=== PATIENT | female | born 2000 | race Caucasian/White ===

== ENCOUNTER 2025-04-21 19:06 | Emergency (ER) | payer OTHER, SELFPAY ==
[2025-04-21 19:13] VITALS: BP 121/74; PULSE 100; TEMP 37; O2SAT 100; BMI 22.3
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
[2025-04-21 20:00] LABS: Hematocrit* 38.7 % (33.0-51.0); Hemoglobin* 12.9 gm/dL (12.0-16.0); Immature Granulocytes Abs Auto 0.01 K/uL (0.00-0.30); Immature Granulocytes Pct Auto 0.1 %; Lymphocytes Absolute Auto 1.10 K/uL (0.90-2.90); Mean Corpuscular HGB Conc 33 gm/dL (32-36); Mean Corpuscular Hemoglobin 29 pg (26-34); Mean Corpuscular Volume 86 fL (80-100); RDW Coefficient of Variation % 13.1 % (11.5-15.5); Red Blood Count* 4.52 m/uL (4.00-5.20); White Blood Count* 10.05 K/uL (4.50-11.00)
[2025-04-21 20:01] LABS: Slide Review Reflex No
--- OUTSIDE RECORDS SUMMARY | 2025-04-21 20:15 | XMS_ITS | Clinical Summary ---
Author Organization [facility] Address [address] [place] [address] Care Team Providers Care Security And Privacy Consultant Name Role Phone Leigha Metzger MD Primary Care Provi mony Allergies No known active allergies Medications MedicationSigDispense QuantityRefillsLast FilledStart DateEnd DateStatus dextroamphetamine-amphetamine (AdderalL) 10 mg tablet Take 10 mg by mouth two times daily.Active vit 62/FA/om3/dha/epa ( GUMMY ORAL) Take 1 Each by mouth once daily.Active Active Problems ProblemNoted DateDiagnosed DateAttention deficit hyperactivity disorder, predominantly inattentive type02/08/2025Estimated Date of Delivery JriibresUbj82/13/2026ased on last menstrual period of 12/29/2024 (Approximate) Encounters DateTypeDepartmentCare KdojIhlfutcqjfq69/17/2025 8:45 AM CSTOB Encounter [facility] [address] [place] [address] Tova Mejias DO Care (10 wks 2 days)03/11/20253133Htybbr89/13/1004Fjjjcc01/07/2025 7:30 AM CSTAncillary Procedure [facility] [address] [place] [address] 02/28/20256233Jorzyn17/30/2025 6:30 PM CDTOffice Visit [facility] [address] [place] [phone] Sayra Cheung NP Cough; Throat Pain/problem; Fever02/20/2025 9:00 AM CDTOB Encounter [facility] [address] [place] [address] Education (RN OB intake)02/20/20251590Qsmvgk77/28/9604Iujett90/17/2025 9:35 AM CDT Office Visit [facility] [address] [place] [address] Brittanie Vega, Confirmation (LMP: 12/29/2024)02/08/2025Travelfrom Last 3 Months Immunizations ImmunizationAdministration DatesNext NyuTBgG4706/20/2007,01/13/2004,04/05/2003, 02/01/2003,2002HIB-HepB (Comvax)10/07/2003,02/01/2003,2002HPV 9 (Gardasil 9)07/12/2016Hepatitis A (Peds)11/28/2014Human Papilloma Virus Vaccine 07/12/2016,11/28/2014Inactivated Polio Mxkxjbv2306/20/2007,04/05/2003,02/01/2003, 2002Influenza A (H1N1), Ghsgdpbrebs24/05/2010,04/23/2009Influenza, IIV3 (Age >=3 years)03/04/2004,04/05/2003Influenza, BJP098/10/2014Influenza, IIV4 (=>6mos) MDV1Influenza,LAIV3 Live Intranasal (Flumist)05/14/2013 Influenza,LAIV4 Live Intranasal (Flumist)03/13/2014,02/16/2012MMR06/20/2007, 01/13/2004Meningococcal Vaccine (Menactra)11/28/2014Pneumococcal conj 7-Valent (Prevnar 7)01/13/2004,04/05/2003,02/01/2003,2002Tdap11/28/2014Varicella Hmjstir1106/20/2007,10/07/2003 Family History Medical HistoryRelationNameCommentsUnknownFatherNo Known ProblemsHalf-Brother Coronary artery diseaseMaternal GrandfatherHeart attackMaternal Grandfather 30's-40'sStrokeMaternal GrandmotherHypertensionMotherMultiple sclerosisPaternal GrandfatherMultiple sclerosisPaternal GrandmotherRelationNameStatusComments FatherAliveHalf-BrotherAliveMaternal GrandfatherAliveMaternal GrandmotherAlive MotherAlivePaternal GrandfatherAlivePaternal GrandmotherAlive Social History Tobacco UseTypesPacks/DayYears UsedDateSmoking Tobacco: NeverSmokeless Tobacco: Never Tobacco Cessation:Counseling Given: Not Answered Alcohol UseStandard Drinks/WeekCommentsNot Currently6 (1 standard drink = 0.6 oz pure alcohol)weekendsPHQ-2AnswerDate RecordedPHQ-2 TOTAL [id number] ConnectionsAnswerDate RecordedDo you often feel lonely or isolated from those around you?lcohol UseAnswerDate RecordedHow often do you have a drink containing alcohol?verage Number of DrinksNot on file 03/11/2025Frequency of Binge DrinkingNot on file03/11/2025Financial Resource StrainAnswerDate RecordedDifficulty of Paying Living Athvcqyu400/17/2025 Difficulty of Paying Living ExpensesNot on file02/08/2025Food InsecurityAnswer Date RecordedDo you worry your food will run out before you are able to buy more?Transportation NeedsAnswerDate RecordedDoes lack of transportation keep you from medical appointments?Does lack of transportation keep you from work, meetings or getting things that you need?1 02/08/2025Housing StabilityAnswerDate RecordedWhat is your housing situation today?UtilitiesAnswerDate RecordedDo you have trouble paying for utilities (for example, heat, electricity, water, phone)? Estimated Date of DsiursjyExtioghrEwm43/13/2026ased on last menstrual period of 12/29/2024 (Approximate)Sex and Gender InformationValueDate RecordedSex Assigned at BirthNot on fileLegal BpeDzcnhz31/06/2025 2:11 PM CDTGender IdentityFemale 02/08/2025 9:30 AM CDTSexual OrientationNot on file Obstetrics History GravidaParaTermPretermABIABSABEctopicMultipleLivingLive Eaqucj7HzqnOdogehpEK Total LaborLabor/2nd/0bvYigrwwHwmSpdcUofvPHRRbpY8V9TrsyKazzVzqench Summary Episode DatesNumber of FetusesEstimated Date of Fsohawya40/29/2025 - Present (04/21/2025)10/05/2025 (set by Hilary Dow, RN on 02/20/2025 based on Last Menstrual Period on 12/29/2024 (Approximate))Based OnEDDGA DiffLast Menstrual Period on 12/29/2024 (Approximate)10/05/2025WorkingUltrasound on 03/01/2025 10/05/2025SameGA:2w9nCrtbuwlvs KEVIN Entry10/05/2025SamePregravid WeightHeightTWG (As of 04/21/2025)Pregravid BMI1.557 m (5' 1.3) Notes Progress Notes - OB Encounte r - 03/11/2025 - GA:10w2d 03/11/2025 - 10w2d - Tova Mejias DO FIRST OB VISIT HPI: Francie Vargas is a 24 y.o. 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 She is here with self. Estimated due date is Estimated Date of Delivery: 10/05/25 based on LMP consistent with 8wk US. 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 . 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 SHANNON Singleton Nausea/Vomiting: no Breast tenderness: yes Fatigue: yes Bleeding: no Taking vitamins: yes started when found out Options of sequential screen, cell-free DNA testing, amniocentesis were discussed. Patient is interested in pursuing testing. She plans to call insurance. AMA: no Previous : no MENSTRUAL HISTORY LMP:Patient's last menstrual period was 12/29/24. Pretty sure. 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 Last Pap smear September 2024 negative ADHD: She has been prescribed Adderall 10 mg twice daily by a provider from the [place] system. Says recently taking every other day or skipping few days. Was not sure if should be taking, says told could take. Helps her day to day life when takes. Otherwise with school can struggle. Says history anxiety, previously tired anxiety med and not help. Tried this ADHD medication and that helps adhd and anxiety 'alot' OB History Para Term AB Living 1 SAB IAB Ectopic Multiple Live Births # Outcome Date GA Lbr Shawn/2nd Weight Sex Type Anes PTL Lv 1 Current No past medical history on file. No history MRSA or resistant infections No past surgical history on file. Family History Problem Relation Age of Onset Hypertension Mother Unknown Father No Known Problems Half-Brother Stroke Maternal Grandmother Coronary artery disease Maternal Grandfather Heart attack Maternal Grandfather 30's-40's Multiple sclerosis Paternal Grandmother Multiple sclerosis Paternal Grandfather Social History Tobacco Use Smoking status: Never Smokeless tobacco: Never Substance Use Topics Alcohol use: Not Currently Alcohol/week: 6.0 standard drinks of alcohol Types: 6 Standard drinks or equivalent per week Comment: weekends Current Outpatient Medications Medication Sig dextroamphetamine-amphetamine (AdderalL) 10 mg tablet Take 10 mg by mouth two times daily. vit 62/FA/om3/dha/epa ( GUMMY ORAL) Take 1 Each by mouth once daily. No current facility-administered medications for this visit. Medications have been reviewed by me and are current to the best of my knowledge and ability. ALLERGIES Patient has no known allergies. MENTAL HEALTH HISTORY History of psychiatric diagnosis: ADHD, see above Current mental health provider: No Currently taking any psychiatric medications? Adderall REVIEW OF SYSTEMS Comprehensive ROS complete and negative other than noted in HPI and on OB Questionnaire. PHYSICAL EXAM BP 116/71 (Cuff Site: Right Arm, Position: Sitting, Cuff Size: Adult Regular) Pulse (!) 106 Wt 52.2 kg (115 lb) LMP 12/29/2024 (Approximate) SpO2 98% BMI 21.52 kg/m?? General: Pleasant female in no acute distress, alert and appropriate HEENT: Conjunctiva clear, nares patent, TMs normal, mucous memory is moist Neck: No lymphadenopathy or thyromegaly Heart: Regular rate and rhythm Lungs: Clear tissue bilaterally Abdomen: Nontender. deferred, had Pap smear in September Extremities: No edema Skin: No concerning lesions Psych: normal affect POCUS FHT POCUS exam today: heart activity is present with a rate of 150's beats per minute. Prior official growth Ultrasound 03/01/25 IMPRESSION: Single living intrauterine measures 8 weeks 6 days with sonographic due date of 10/05/2025. Small right-sided subchorionic hemorrhage measures 12 x 5 x 4 millimeters. KEVIN: KEVIN at 10/05/25 by LMP consistent with 8 6/7wks ASSESSMENT/PLAN Normal first visit. 1. Discussed orientation and general information. 2. Typical remaining course reviewed. 3. Labor signs/warning signs reviewed. 4. Ultrasound for dating reviewed. 6. Reviewed labs. 7. discussed risks versus benefits of risk screening such as CYSTIC FIBROSIS, SMA (spinal muscular atrophy), quad screen and sangeetha testing reviewed. Patient plans to call her insurance and let us know if wants to pursue. 8. ADHD: discussed risks vs benefits of stimulants for ADHD treatment in . Discussed stimulants potential risks can include decrease placental perfusion, increase risk PTB and LBW, withdrawal, irritability, feeding difficulties. Reviewed risks untreated ADHD as well. Shared decision makingdone today Patient currently using intermittently and not daily for school. Finishes school end of March so plans to take as needed until completes school Followup in 4 weeks, sooner if needed ASPIRIN CANDIDATE EVALUATION One or more of the following: Previous with preeclampsia, especially early onset and with and adverse outcome. 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 female, , who presents for confirmation and obeducation. Patient presents to the clinic alone. Had positive test at home. This was Unplanned, Desired. Patient was not on contraception. 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 MENSTRUAL HISTORY: Patient's last menstrual period was 12/29/2024 (approximate).: Cycle Regularity: regular, every 28-30 days No past medical history on file. OB History Para Term AB Living 1 SAB IAB Ectopic Multiple Live Births # Outcome Date GA Lbr Shawn/2nd Weight Sex Type Anes PTL Lv 1 Current 02/08/2025 9:00 AM PHQ Depression Screening Date of PHQ exam (doc flow) 02/08/2025 1. Lack of interest/pleasure 0 - Not at all 2. Feeling down/depressed 0 - Not at all PHQ-2 TOTAL SCORE 0 3. Trouble sleeping 1 - Several days 4. Decreased energy 0 - Not at all 5. Appetite change 0 - Not at all 6. Feelings of failure 0 - Not at all 7. Trouble concentrating 0 - Not at all 8. Activity level 0 - Not at all 9. Hurting yourself 0 - Not at all PHQ-9 TOTAL SCORE 1 PHQ-9 Severity Level none Functional Impairment not difficult at all 02/08/2025 9:00 AM MARY-7 ANXIETY SCREENING MARY date (doc flow) 02/08/2025 Nervous, anxious 0 Cannot stop worrying 0 Worry about different things 0 Cannot relax 0 Feeling restless 0 Easily annoyed/irritated 0 Afraid of awful event 0 Score 0 Severity none 5P'S SUBSTANCE ABUSE SCREEN FOR ALCOHOL, DRUGS AND TOBACCO: Did any of your parents have a problem with using alcohol or drugs? No Do any of your friends (peers) have problems with drug or alcohol use? No Does your partner have a problem with drug or alcohol use? No Before you knew you were , how often did you drink beer, wine, wine coolers or liquor or use any kind of drug? Sometimes - alcohol weekends only In the past month, how often did you drink beer, wine, wine coolers or liquor or use any kind of drug? Not at all How much did you smoke, vape or use tobacco or nicotine in any form before you knew you were ? Current Everyday User Genetic Screening Genetic Screening/Teratology Counseling- Includes patient, baby's father, or anyone in either family with: Patient's age 35 years or older as of estimated date of delivery: No Thalassemia (Citizen Of [place], [place]ian, Mediterranean, or background): MCV less than 80: No Neural tube defect (Meningomyelocele, Spina bifida, or Anencephaly): No Congenital heart defect: No Down syndrome: No Roland-Sachs (Ashkenazi Anabaptism, Cajun, Palauan Milmine): No Susan disease (Ashkenazi Anabaptism): No Familial dysautonomia (Ashkenazi Anabaptism): No Sickle cell disease or trait (): No Hemophilia or other blood disorders: No Muscular dystrophy: No Cystic fibrosis: No Healy's chorea: No Intellectual disability and/or autism: No Other inherited genetic or chromosomal disorder: No Maternal metabolic disorder (eg. Type 1 diabetes, PKU): No Patient or baby's father had child with defects not listed above: No Recurrent loss, or a stillbirth: No Medications (including supplements, vitamins, herbs, or OTC drugs)/illicit/recreational drugs/alcohol since last menstrual period: No CURRENT MEDICATIONS: Current Outpatient Medications Medication Sig dextroamphetamine-amphetamine (AdderalL) 10 mg tablet Take 10 mg by mouth two times daily. vit 62/FA/om3/dha/epa ( GUMMY ORAL) Take 1 Each by mouth once daily. No current facility-administered medications for this visit. Medications have been reviewed by me and are current to the best of my knowledge and ability. ALLERGIES: Patient has no known allergies. OBJECTIVE: LMP 12/29/2024 (Approximate) POC HCG URINE (no units) Date Value 02/08/2025 POSITIVE (A) ASSESSMENT/PLAN: No diagnosis found. EDUCATION/PATIENT INSTRUCTIONS - Advised patient to start/continue vitamin. - Discussed risk of using alcohol, tobacco, other drugs in . - Discussed healthy lifestyle in . - Provided copy of Beginnings book and book inserts, discussed xsgu-cov-pkogxkv medications, and follow up. - Encouraged patient to call clinic at [phone] with any vaginal bleeding, fluid leaking from vagina, severe abdominal pain, nausea with severe vomiting, fever higher than 100.4F, painful urination, headache not relieved by Tylenol, or other concerns - labs completed with today's visit. - Patient informed to schedule 1st trimester dating ultrasound between 7-10 weeks. - Initial OB appointment with FP/OB scheduled. COVID-19 vaccine discussion to be completed at this visit. Future Appointments Date Time Provider Department Center 03/01/2025 7:30 AM [facility] ULTRASOUND [facility]DMI [facility] 03/11/2025 8:45 AM Tova Mejias, DO NFLDFP NFLD Hilary Dow RN .................... 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 Bmlzvj964.7 cm (5' 1.3)02/20/2025 10:20 AM CDTBody Mass Index21.5202/20/2025 10:20 AM CDT Plan of Treatment Health MaintenanceDue DateLast DoneCommentsTetanus kkzuvye16/09/2014 COVID-19 vaccine series ( season)2024Influenza Vaccine (#1) , 01/29/2015, 03/13/2014, Additional history exists Depression screening for age 12+MI (ht and wt on same day) for age 18+hlamydia for age 16-241Pap test for age 21-65010/19/17493410/19/2024 (Verified in Care Everywhere or Patient Record)Hepatitis B series for 19+Yedpgpfha37/14/2004, 02/01/2003, 2002 Pneumococcal series for age 6-49Aged Out01/13/2004, 04/05/2003, 02/01/2003, Additional history existsNo longer eligible based on patient's age to complete this topicHPV series for age 9-85Hulnauljo62/20/2017, 07/12/2016, 11/28/2014HIV for age 15-60Xyeqjbzrc07/29/2025Hepatitis C screening for age 18-79Completed 02/20/2025RSV vaccine for adults or (No Doses Required)Completed Procedures Procedure NamePriorityDate/TimeAssociated DiagnosisCommentsUS OB 1ST TRI SINGLE STYihwqzz25/07/2025 9:37 AM 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 Positive test (HC) COVID/FLU/RSV MICAKAqqywny40/30/2025 7:15 PM CDT Sore throat STREP A UULHOUB17/30/2025 6:46 PM CDT Sore throat THROAT RAPID STREP A WITH KTWBCVPRQE18/30/2025 6:46 PM CDT Sore throat TYPE & YIKWPOJynnimv23/29/2025 10:37 AM CDT Encounter for supervision of normal first in first trimester (HC) ANTI HNQLelfgnk59/29/2025 10:37 AM CDT Encounter for supervision of normal first in first trimester (HC) HBSAG (HBS)Nutadup3802/20/2025 10:37 AM CDT Encounter for supervision of normal first in first trimester (HC) TREPONEMA XWKBRIPXTaudqwx91/29/2025 10:37 AM CDT Encounter for supervision of normal first in first trimester (HC) RUBELLA IMMUNE LXTWIDTnrmdal96/29/2025 10:37 AM CDT Encounter for supervision of normal first in first trimester (HC) CBC W PLT NO KLTSQnrpiiv04/29/2025 10:37 AM CDT Encounter for supervision of normal first in first trimester (HC) VARICELLA-ZOSTER V AB, GDMDnfktys74/29/2025 10:37 AM CDT Encounter for supervision of normal first in first trimester (HC) ANTI HIV 1/8Qjwldxy70/29/2025 10:37 AM CDT Encounter for supervision of normal first in first trimester (HC) GC CHLAMYDIA TRACH PDBDZYwfqamj71/29/2025 10:15 AM CDT Encounter for supervision of normal first in first trimester (HC) URINE DPFUMOTGhdgwgn98/29/2025 10:15 AM CDT Encounter for supervision of normal first in first trimester (HC) URINE JROAAnteiex05/17/2025 9:44 AM CDT Missed period from Last 3 Months Results * US OB 1ST TRI SINGLE TA (03/01/2025 9:37 AM 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)Anatomical RegionLaterality ModalityPREGNANCY, 1ST TRIMESTERUltrasoundSpecimen (Source) Anatomical Location / LateralityCollection Method / VolumeCollection Time Received Time03/01/2025 10:22 AM 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 Impressions 03/01/2025 10:22 AM 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 Small right-sided subchorionic hemorrhage measures 12 x 5 x 4 millimeters. Dictated by Jonathan Correa MD @ 03/01/2025 10:22:36 AM (Electronically Signed) Narrative 03/01/2025 10:22 AM 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 For Patients: As a result of the Cures Act, medical imaging exams and procedure reports are released immediately into your electronic medical record. You may view this report before your referring provider. If you have questions, please contact your health care provider. INDICATION: First trimester scan, establish dates. COMPARISON: None. TECHNIQUE: Real-time isaac-scale imaging of the pelvis was performed transabdominal. ? FINDINGS: Sonographic imaging demonstrates a single living intrauterine gestation. The embryo demonstrates a regular cardiac rate measuring 176 beats per minute. The embryo`s crown-rump length measurement of 2.1 cm corresponds to a gestational age of 8 weeks 6 days with a sonographic due date of . There is anormal- appearing yolk sac. There are no gross abnormalities noted within the embryo at this early state of development. The gestational sac has a normal appearance. There is a 12 x 5 x 4 millimeter right-sided perigestational hemorrhage. The amount of fluid within the sac appears appropriate for gestational age. The cervix is closed. The myometrium appears normal. The ovaries are of normal size. There are no suspicious fluid collections noted in the cul-de-sac. Procedure Note Jonathan Corera MD - 03/01/2025 For Patients: As a result of the Cures Act, medical imagingexams and procedure reports are released immediately into your electronicmedical record. You may view this report before your referring provider.If you have questions, please contact your health care provider. INDICATION: First trimester scan, establish dates. COMPARISON: None. TECHNIQUE: Real-time isaac-scale imaging of the pelvis was performed transabdominal. FINDINGS: Sonographic imaging demonstrates a single living intrauterine gestation.The embryo demonstrates a regular cardiac rate measuring 176 beats perminute. The embryo`s crown-rump length measurement of 2.1 cm correspondsto a gestational age of 8 weeks 6 days with a sonographic due date of .There is a normal-appearing yolk sac. There are no gross abnormalitiesnoted within the embryo at this early state of development. Thegestational sac has a normal appearance. There is a 12 x 5 x 4 millimeterright-sided perigestational hemorrhage. The amount of fluid within the sacappears appropriate for gestational age. The cervix is closed. The myometrium appears normal. The ovaries are ofnormal size. There are no suspicious fluid collections noted in zrepcr-pi-ljq. IMPRESSION: Single living intrauterine measures 8 weeks 6 days withsonographic due date of 10/05/2025. Small right-sided subchorionic hemorrhage measures 12 x 5 x 4millimeters. Dictated by Jonathan Correa MD @ 03/01/2025 10:22:36 AM (Electronically Signed) Authorizing ProviderResult TypeResult StatusBrittanie Vega DOUSFinal Result * COVID/FLU/RSV PANEL (02/21/2025 7:15 PM CDT)ComponentValueRef RangeTest Method Analysis TimePerformed AtPathologist SignatureCOVID 19 [facility] MOLECULAR PhpvthzvJdughtyd93/31/2025 1:36 AM [facility]-CENTRAL LABORATORYINFLUENZA A NJPHgrnhiel43/31/2025 1:36 AM [facility]-CENTRAL LABORATORYINFLUENZA B HRKSqgonzgq08/31/2025 1:36 AM CDT [facility]-CENTRAL LABORATORYRespiratory Syncytial VirusNegative 02/22/2025 1:36 AM [facility]-CENTRAL LABORATORYSpecimen (Source)Anatomical Location / LateralityCollection Method / VolumeCollection TimeReceived TimeSwab (Nasal Swab)Non-Blood / Gougydk7702/21/2025 7:15 PM CDT 02/21/2025 7:29 PM CDT Narrative Authorizing ProviderResult TypeResult StatusSayra Cheung NP MICROBIOLOGYFinal ResultPerforming OrganizationAddressCity/State/ZIP CodePhone Number [facility] [address] [place] [address], [place] * STREP A PCR (02/21/2025 6:46 PM CDT)ComponentValueRef RangeTest MethodAnalysis TimePerformed AtPathologist SignatureGROUP A FAFBUQokkqthp44/30/2025 7:36 PM CDTFVALLEY PLAZA DOCTORS [facility]PITAL LABORATORYSpecimen (Source)Anatomical Location / LateralityCollection Method / VolumeCollection TimeReceived TimeThroatSPECIMEN FROM THROAT / UnknownNon-Blood / Clbgbtf6502/21/2025 6:46 PM CDT1 7:11 PM CDT Narrative Authorizing ProviderCarlsbad Medical Center TypeDallas Medical CenterSayra Cheung BANKRUPTCY MANAGER MICROBIOLOGYFinal ResultPerforming OrganizationAddressCity/State/ZIP CodePhone Number [facility] [address] [place] [address] * THROAT RAPID STREP A WITH REFLEX (02/21/2025 6:46 PM CDT)ComponentValueRef RangeTest MethodAnalysis TimePerformed AtPathologist SignatureSTREP A ANTIGEN Szpzlvrj01/30/2025 7:11 PM CDTFVALLEY PLAZA DOCTORS HOSPITAL LABORATORYComment:PCR to follow.Specimen (Source)Anatomical Location / LateralityCollection Method / VolumeCollection TimeReceived TimeThroatSPECIMEN FROM THROAT / UnknownNon- Blood / Djvqkkz0402/21/2025 6:46 PM CDT1 7:01 PM CDT Narrative Authorizing ProviderMark Twain St. JosephKikoneisaac Cheung BANKRUPTCY MANAGER MICROBIOLOGYFinal ResultPerforming OrganizationAddressCity/State/ZIP CodePhone Number [facility] [address] [place] [address] * VARICELLA-ZOSTER V AB, IGG (02/20/2025 10:37 AM CDT)ComponentValueRef Range Test MethodAnalysis TimePerformed AtPathologist SignatureVARICELLA ZOSTER VIRUS AB (IMMUNITY SCR),ACIF BLOOD> or = 1:410 5:45 PM CDTQUEST DIAGNOSTICSComment: REFERENCE RANGE: > or = 1:4 <1:4 Antibody Not Detected - evidence for susceptibility ?to VZV infection. > or = 1:4 Antibody Detected - evidence for immunity ?against VZV infection. A positive titer (greater than or equal to 1:4) indicates a history of VZV infection or vaccination. In infected individuals, this test is usually positive within 2 days after the onset of rash and is therefore positive for life. The absence of detectable antibody may indicate susceptibility to VZV infection. This test was developed and its analytical performance characteristics have been determined by [employer]. It has not been cleared or approved by FDA. This assay has been validated pursuant to the CLIA regulations and is used for clinical purposes. Specimen (Source)Anatomical Location / LateralityCollection Method / Volume Collection TimeReceived TimeBloodBLOOD SPECIMEN / UnknownQuest Collect / Unknown 02/20/2025 10:37 AM CDT1 10:37 AM CDT Narrative Authorizing ProviderResult TypeResult Status[facility] Betsy Mejias [facility]ITALABORATORYRutherford [facility] ResultPerforming OrganizationAddressty/State/ZIP CodePhone Number [employer] [address] [address], * TREPONEMA PALLIDUM (02/20/2025 10:37 AM CDT)ComponentValueRef RangeTest Method Analysis TimePerformed AtPathologist SignatureTREPONEMA PALLIDUMNon-Reactive Non-Uoxizpyz14/29/2025 3:45 PM [facility] Specimen (Source)Anatomical Location / LateralityCollection Method / Volume Collection TimeReceived TimeBloodBLOOD SPECIMEN / UnknownQuest Collect / Yznqnkp6202/20/2025 10:37 AM CDT1 10:37 AM CDT Narrative Authorizing ProviderResult TypeResult Status[facility] Betsy Gerardleanna [facility] ResultPerforming OrganizationAddressSelect Medical [facility]/State/ZIP CodePhone Number [facility] [address] [address], * RUBELLA IMMUNE STATUS (02/20/2025 10:37 AM CDT)ComponentValueRef RangeTest MethodAnalysis TimePerformed AtPathologist SignatureRUBELLA AB (IGG), IMMUNE STATUS1.35Himco6302/21/2025 12:38 PM CDTQUEST DIAGNOSTICSComment: ?Index ?Interpretation ?----- ? <0.90 Not consistent with immunity ?0.90-0.99 ?Equivocal > or = 1.00 Consistent with immunity The presence of rubella IgG antibody suggests immunization or past or current infection with rubella virus. Specimen (Source)Anatomical Location / LateralityCollection Method / Volume Collection TimeReceived TimeBloodBLOOD SPECIMEN / UnknownQuest Collect / Unknown 02/20/2025 10:37 AM CDT1 10:37 AM CDT Narrative Authorizing ProviderResult TypeResult StatusMagruder Hospitalfunmilayo Mejias DOSEND OUTSFinal ResultPerforming OrganizationAddressCity/State/ZIP CodePhone Number [employer] [id number] [place] [address], [place] [phone] * TYPE AND SCREEN (02/20/2025 10:37 AM CDT)ComponentValueRef RangeTest Method Analysis TimePerformed AtPathologist SignatureABORHO Rh Mmkkpibf46/29/2025 4:06 PM CDFAUQUIER HEALTH SYSTEM LAB-CENTRAL LAB BLOOD BANKANTIBODY SCREENNegative Fcsryafe92/29/2025 4:06 PM [facility] BLOOD BANKSPECIMEN EXPIRATION DATE/TIME02/23/25 23:5902/20/2025 4:06 PM [facility] BLOOD BANKSpecimen (Source)Anatomical Location / Laterality Collection Method / VolumeCollection TimeReceived TimeBloodBLOOD SPECIMEN / UnknownQuest Collect / Zleorrw0202/20/2025 10:37 AM CDT1 10:37 AM CDT Narrative Authorizing ProviderResult TypeResult StatusMagruder Hospitalfunmilayo Betsy Mejias DOBLOOD BANKFinal ResultPerforming OrganizationAddressCity/State/ZIP CodePhone Number [facility] BLOOD BANK [address] [place] [address], [place] [phone] * HBSAG (HBS) (02/20/2025 10:37 AM CDT)ComponentValueRef RangeTest Method Analysis TimePerformed AtPathologist SignatureHEPATITIS B SURFACE ANTIGEN AMS-CYEQQDYUCUW-QWKZVHXO02/30/2025 1:18 PM CDTQUEST DIAGNOSTICSComment: For additional information, please refer to http://education.Bouncefootball.Camera Agroalimentos/faq/TXX524 (This link is being provided for informational/ educational purposes only.) Specimen (Source)Anatomical Location / LateralityCollection Method / Volume Collection TimeReceived TimeBloodBLOOD SPECIMEN / UnknownQuest Collect / Unknown 02/20/2025 10:37 AM CDT1 10:37 AM CDT Narrative Authorizing ProviderResult TypeResult StatusTova VALDOVINOS [facility] ResultPerforminDelaware Psychiatric CenterAddWellSpan Good Samaritan Hospitalty/State/ZIP CodePhone Number Textual[employer] [address] [address], * ANTI HCV (02/20/2025 10:37 AM CDT)ComponentValueRef RangeTest MethodAnalysis TimePerformed AtPathologist SignatureHEPATITIS C ANTIBODYNON-REACTIVE NON-XHIUTBUR81/30/2025 1:18 PM CDTQUEST DIAGNOSTICSComment: HCV antibody was non-reactive. There is no laboratory evidence of HCV infection. In most cases, no further action is required. However, if recent HCV exposure is suspected, a test for HCV RNA (test code 88264) is suggested. For additional information please refer to http://education.VidFall.com/faq/CYE60m5 (This link is being provided for informational/ educational purposes only.) Specimen (Source)Anatomical Location / LateralityCollection Method / Volume Collection TimeReceived TimeBloodBLOOD SPECIMEN / UnknownQuest Collect / Unknown 02/20/2025 10:37 AM CDT1 10:37 AM CDT Narrative Authorizing ProviderResult TypeResult StatusMagruder Hospitalfunmilayo [facility] ResultPerforming OrganizationAddressty/State/ZIP CodePhone Number [employer] [address] [address], * CBC W PLT NO DIFF (02/20/2025 10:37 AM CDT)ComponentValueRef RangeTest Method Analysis TimePerformed AtPathologist SignatureWHITE BLOOD CELL COUNT8.03.8 - 10.8 Thousand/uL02/21/2025 3:21 AM CDTQUEST DIAGNOSTICSRED BLOOD CELL COUNT 4.643.80 - 5.10 Million/uL02/21/2025 3:21 AM CDTQUEST DIAGNOSTICSHEMOGLOBIN 13.911.7 - 15.5 g/dL02/21/2025 3:21 AM CDTQUEST YSTLIRLSOTQSQBDLXKMUF55.935.0 - 45.0 %02/21/2025 3:21 AM CDTQUEST MVXZMBOPDXTGOW79.180.0 - 100.0 fL 02/21/2025 3:21 AM CDTQUEST WQYWZAFECLMGDB15.027.0 - 33.0 pg02/21/2025 3:21 AM CDTQUEST WKMDPMVNPJSKTJU40.032.0 - 36.0 g/dL02/21/2025 3:21 AM CDTQUEST DIAGNOSTICSComment: For adults, a slight decrease in the calculated MCHC value (in the range of 30 to 32 g/dL) is most likely not clinically significant; however, it should be interpreted with caution in correlation with other red cell parameters and the patient's clinical condition. RDW11.811.0 - 15.0 %02/21/2025 3:21 AM CDTQUEST DIAGNOSTICSPLATELET QFTSJ684793 - 400 Thousand/uL02/21/2025 3:21 AM CDTQUEST RVWDWPCRTQDQCO44.57.5 - 12.5 fL 02/21/2025 3:21 AM CDTQUEST DIAGNOSTICSSpecimen (Source)Anatomical Location / LateralityCollection Method / VolumeCollection TimeReceived TimeBloodBLOOD SPECIMEN / UnknownQuest Collect / Rlypmpx1002/20/2025 10:37 AM CDT1 10:37 AM CDT Narrative Authorizing ProviderResult TypeResult StatusHeather Betsy Mejias DOHEMATOLOGYFinal ResultPerforming OrganizationAddressCity/State/ZIP CodePhone Number [facility] [address] [place] [address], * ANTI HIV 1/2 (02/20/2025 10:37 AM CDT)ComponentValueRef RangeTest Method Analysis TimePerformed AtPathologist SignatureHIV FINAL INTERPRETATOINHIV HRGUSULJ83/30/2025 1:18 PM CDTQUEST DIAGNOSTICSComment: HIV-1 antigen and HIV-1/HIV-2 antibodies were not detected. There is no laboratory evidence of HIV infection. HIV AG/AB, 4TH YYBFOZ-WAESEUUEJEO-YEEMJTIF28/30/2025 1:18 PM CDTQUEST DIAGNOSTICSSpecimen (Source)Anatomical Location / LateralityCollection Method / VolumeCollection TimeReceived TimeBloodBLOOD SPECIMEN / UnknownQuest Collect / Mdcslhc8302/20/2025 10:37 AM CDT1 10:37 AM CDT Narrative Authorizing ProviderResult TypeResult StatusHeather Betsy Mejias DOSEND OUTSFinal ResultPerforming OrganizationAddressCity/State/ZIP CodePhone Number [employer] [facility] [address] [place] [address], * TOLL RELIEF OPERATOR PROBE - GC CHLAMYDIA DNA PCR [[id number]] (02/20/2025 10:15 AM CDT)Component ValueRef RangeTest MethodAnalysis TimePerformed AtPathologist Signature CHLAMYDIA PROBENegative 02/20/2025 9:07 PM [facility] LABORATORYN GONORRHOEAE PROBENegative 02/20/2025 9:07 PM CDENCOMPASS HEALTH RE[facility]ILIT[facility] LABORATORYSpecimen (Source)Anatomical Location / LateralityCollection Method / VolumeCollection TimeReceived TimeOtherURINE SPECIMEN / UnknownNon-Blood / Nziosuc1102/20/2025 10:15 AM CDT1 10:34 AM CDT Narrative Authorizing ProviderResult TypeResult StatusHeather Betsy Mejias DOMICROBIOLOGY Final ResultPerforming OrganizationAddressCity/State/ZIP CodePhone Number [facility] [address] [place] [address], * URINE CULTURE (02/20/2025 10:15 AM CDT)ComponentValueRef RangeTest Method Analysis TimePerformed AtPathologist SignatureCULTURE>100,000 CFU/mL of multiple organisms, probable tqpfomdqeiow78/03/2025 2:55 PM CSTLAWRENCE COUNTY HOSPITALCENTRAL LABORATORYSpecimen (Source)Anatomical Location / Laterality Collection Method / VolumeCollection TimeReceived TimeUrineURINE SPECIMEN OBTAINED BY CLEAN CATCH PROCEDURE / UnknownNon-Blood / Licoohr6402/20/2025 10:15 AM CDT1 10:34 AM CDT Narrative Authorizing ProviderResult TypeResult StatusHeather Betsy Mejias DOMICROBIOLOGY Final ResultPerforming OrganizationAddressCity/State/ZIP CodePhone Number [facility] [address] [place] [address], * (ABNORMAL) POCT Urine (02/08/2025 9:44 AM CDT)ComponentValueRef RangeTest MethodAnalysis TimePerformed AtPathologist SignaturePOC HCG URINE POSITIVE(A)QXWNIQUV14/17/2025 10:03 AM CDTALADVANCED CARE HOSPITAL OF [facility] Specimen (Source)Anatomical Location / LateralityCollection Method / Volume Collection TimeReceived TimeUrineURINE SPECIMEN / UnknownNon-Blood / Unknown 02/08/2025 9:44 AM CDT1 9:56 AM CDT Narrative Authorizing ProviderResult TypeResult StatusErin Mora Vega DOURINEFinal ResultPerforming OrganizationAddressCity/State/ZIP CodePhone Number [facility] [address] [place] [address], [facility] [address] [place] [address], [place] [phone] from Last 3 Months Insurance Care Teams Team MemberRelationshipSpecialtyStart Date[place] [address] [place] [address] PCP - GeneralFamily Hhjahdvn88/29/25
--- OUTSIDE RECORDS SUMMARY | 2025-04-21 20:15 | XMS_ITS | Clinical Summary ---
Author Organization [facility] Address [address] [place] [address] Care Team Providers Care Cdl Truck Driver Name Role Phone Leigha Mace M.D. Primary Care Pro vider Source Comments Patient records contain information from all sites at [facility]. For routine questions regarding patient records, call [phone] during business hours, M-F 8:00 AM - 5:00 PM Central Time. Record requests for emergency care only can be directed to [phone] at any time.[facility] Allergies No known active allergies Medications * This document contains information received from the source organization and may not represent a complete record from that organization. MedicationSigDispense QuantityRefillsLast FilledStart DateEnd DateStatus metroNIDAZOLE (Rosadan) 0.75 % gel Apply twice daily to face rash 45 g 5Active dextroamphetamine-amphetamine (AdderalL) 10 mg tablet Indications:Attention Deficit Hyperactivity Disorder Predominantly Inattentive TypeTake 1 tablet (10 mg total) by mouth 2 (two) times a day for 29 days. 60 tablet 5Active dextroamphetamine-amphetamine (AdderalL) 10 mg tablet Indications:Attention Deficit Hyperactivity Disorder Predominantly Inattentive TypeTake 1 tablet (10 mg total) by mouth 2 (two) times a day for 29 days. 60 tablet 5Active dextroamphetamine-amphetamine (AdderalL) 10 mg tablet Indications:Attention Deficit Hyperactivity Disorder Predominantly Inattentive TypeTake 1 tablet (10 mg total) by mouth 2 (two) times a day. 60 tablet 5Active dextroamphetamine-amphetamine (AdderalL) 10 mg tablet Indications:Attention Deficit Hyperactivity Disorder Predominantly Inattentive TypeTake 1 tablet (10 mg total) by mouth 2 (two) times a day. 60 tablet 5105/31/2024Discontinued(Reorder) Active Problems ProblemNoted DateDiagnosed DateAttention Deficit Hyperactivity Disorder Predominantly Inattentive Type10/19/20246191Pmfvjkdd00/02/2011 Encounters DateTypeDepartmentCare IzaiXcjfjfmqywy35/02/2025Refkindred healthcare Department of [facility], [facility], [address] [address] Leigha Mace M.D. Med Iabrix9203/19/[address] [address] Leigha Mace M.D. Med Hjrwqh2801/30/[address]25[address] [address] Leigha Mace M.D. Med Refillfrom Last 3 Months Immunizations ImmunizationAdministration DatesNext Svh1vQQY (discontinued)07/12/2016, 11/28/201441956sYIB28/20/2017DTaP ([employer], [employer])06/20/2007,01/13/2004, 04/05/2003,02/01/2003,2002H1N1 All Forms05/30/2009,04/23/2009HepA Pediatric/Czwsnydrzv06/06/2015Hib-HepB10/07/2003,02/01/2003,2002IPV 06/20/2007,04/05/2003,02/01/2003,2002Influenza TIV (IM)03/04/2004, 04/05/2003Influenza, Injectable, Rlysiukrsvuj09/16/2018Influenza, Seasonal, Pbreomrrzm66/10/2004,04/05/2003MCV4 (Menactra)(Discontinued)11/28/2014MMR 06/20/2007,01/13/2004PCV7 (discontinued)01/13/2004,04/05/2003,02/01/2003, 2002Tdap11/28/2014VAR06/20/2007,10/07/2003influenza LAIV (Nasal) (2 years through 49 years)03/13/2014,05/14/2013,02/16/2012influenza trivalent LAIV (Nasal) (2 years through 49 years)05/14/2013influenza vaccine quad (FLUZONE/FLUARIX) (6 months and older)(PF)01/29/2015,03/13/2014,02/16/2012 Family History Medical HistoryRelationNameCommentsHypertensionMotherRelationNameStatusComments Mother Social History Tobacco UseTypesPacks/DayYears UsedDateSmoking Tobacco: NeverSmokeless Tobacco: Never Tobacco Cessation:Counseling Given: Not Answered Alcohol UseStandard Drinks/WeekCommentsYes6 (1 standard drink = 0.6 oz pure alcohol)[facility] UtilitiesAnswerDate RecordedIn the past 12 months has the [employer], gas, oil, or water [employer] threatened to shut off services in your home?No 05/11/2024Hunger Vital SignAnswerDate RecordedWithin the past 12 months, you worried that your food would run out before you got the money to buymore.Never true05/11/2024Within the past 12 months, the food you bought just didn't last and you didn't have money to get more.Never true05/11/2024PRAPARE - TransportationAnswerDate RecordedIn the past 12 months, has lack of transportation kept you from medical appointments or from getting medications?No 05/11/2024In the past 12 months, has lack of transportation kept you from meetings, work, or from getting things needed for daily living?No05/11/2024 DepressionAnswerDate RecordedPHQ-9 Total Score (max 27) Housing StabilityAnswerDate RecordedWhat is your living situation today?I have a steady place to live05/11/2024CommentsUnknownSex and Gender Information ValueDate RecordedSex Assigned at NsenuRdstvn80/14/2022 5:47 PM CDTLegal Sex Zpxpmu2305/28/2016 1:54 PM CSTGender HdljzqhaPsrdyq68/14/2022 5:47 PM CDTSexual OrientationNot on file Last Filed Vital Signs Vital SignReadingTime TakenCommentsBlood Hfdmkpes009/77010/19/2024 7:20 AM CDT Aeeuc276110/19/2024 7:20 AM XEMPigtozxomib32.6 ??C (97.9 ??F)10/19/2024 7:20 AM CDTRespiratory Kdgs086901/21/2021 3:45 PM CDTOxygen Fsdpzvsxxj43%05/11/2024 1:44 PM CSTInhaled Oxygen Concentration--Znbhfp93.6 kg (109 lb 5.6 oz)10/19/2024 7:20 AM NCKJucnpf378.9 cm (5' 2.17)10/19/2024 7:20 AM CDTBody Mass Index19.89 10/19/2024 7:20 AM CDT Plan of Treatment DateTypeDepartmentCare Team (Latest Contact Info)Egenytxovge05/29/2025 8:00 AM CSTOffice Visit Department of Family Medicine, [facility], in [address] [phone] Leigha Mace M.D. [address] [place] [phone] Discharge Disposition: Home or Self CareHealth MaintenanceDue DateLast Done CommentsHepatitis C Djamwntou80/10/2003DTaP,Tdap,and Td Vaccines (7 - Td or Tdap), 06/20/2007, 01/13/2004, Additional history exists COVID-19 Vaccine ( - season)2024Influenza Vaccine (#1)2024 02/07/2018, 01/29/2015, 03/13/2014, Additional history existsCervical/Vaginal Cancer Mvgcdodpf40Hepatitis B NcsrlclpKjuocmjml95/14/2004, 02/01/2003, 2002Pneumococcal vaccine (0-49 years)Aged Out01/13/2004, 04/05/2003, 02/01/2003, Additional history existsNo longer eligible based on patient's age to complete this topicIPV PycwihwqBevabcdlu86/26/2008, 04/05/2003, 02/01/2003, Additional history existsVaricella OopymyejXrrkrdwph01/26/2008, 10/07/2003Meningococcal VaccineAged Out11/28/2014No longer eligible based on patient's age to complete this topicHPV QnuzqvzhOnczilwrp59/20/2017, 07/12/2016, 11/28/2014Chlamydia and Gonorrhea PfkohbohhUipzmdbxiiuz89/17/2025Depression Screening (Annual PHQ-2)Rrtogrrbn77/27/2025, 05/11/2024Hepatitis B Screening Qmmaowvqapdv81/29/2025 Procedures Procedure NamePriorityDate/TimeAssociated DiagnosisCommentsTHINPREP SCREEN HPV NNWBGENzeukkl84/27/2025 7:56 AM CDT Pap Smear Examination CHLAMYDIA/GONORRHOEAE AMPLIFIED PWPEthglxu62/17/2025 2:45 PM ACCOUNT CLERK Screening For Venereal Disease from Last 3 Months or Most Recently Relevant to Health Maintenance Results * ThinPrep Screen HPV Reflex (10/19/2024 7:56 AM CDT)ComponentValueRef RangeTest MethodAnalysis TimePerformed AtPathologist SignatureCase WfjelnHY-63-4662 10/23/2024 10:02 AM CDTECLRReport electronically signed byRONAK Cárdeans(ASCP) I verify that I have examined all relevant slides/materials for the specimen(s) and rendered or confirmed the diagnosis. 10/23/2024 10:02 AM CDTECLRGross DescriptionReceived specimen in a ThinPrep vial.10/23/2024 10:02 AM CDTECLRPap Test SourceCervical/Endocervical, blood anegjn5210/23/2024 10:02 AM CDTECLRClinical Mkyayinvaqylgph18/01/2025 10:02 AM CDT ECLRMenstrual Status(LMP, PM, )LMP 6/14/760265/04/2024 10:02 AM CDTECLR Hormone Therapy/Idoxtlhqztuvipsyja05/01/2025 10:02 AM CDTECLRInterpretation Cervical/Endocervical, blood tinged (ThinPrep): Satisfactory for Evaluation Scanty cellularity. Negative for Intraepithelial Lesion or Malignancy 10/23/2024 10:02 AM CDTECLRSpecimen (Source)Anatomical Location / Laterality Collection Method / VolumeCollection TimeReceived TimeThin Prep Vial (Cervix/Endocervix)10/19/2024 7:56 AM CDT10/22/2024 8:08 AM CDT Narrative Authorizing ProviderResult TypeResult Angel Baltazar M.D.LAB PAP PATHDX ORDERABLESFinal ResultPerforming OrganizationAddressCity/State/ZIP CodePhone Number [facility] [address] [place] [address] ECLR [address] [place] [phone] * Chlamydia / Gonorrhoeae Amplified RNA (05/11/2024 2:45 PM ACCOUNT CLERK)ComponentValue Ref RangeTest MethodAnalysis TimePerformed AtPathologist SignatureSourceUrine, Urine, First Tiupyn2805/12/2024 12:19 PM CSTECLRChlamydia trachomatis amplified VMRBbpkabhlCrhltzsx04/18/2025 12:19 PM CSTECLRSourceUrine, Urine, First Voided 05/12/2024 12:19 PM CSTECLRNeisseria gonorrhoeae amplified RNANegativeNegative 05/12/2024 12:19 PM CSTECLRSpecimen (Source)Anatomical Location / Laterality Collection Method / VolumeCollection TimeReceived TimeUrine (Urine, First Voided)05/11/2024 2:45 PM CST05/11/2024 8:37 PM ACCOUNT CLERK Narrative Authorizing ProviderResult TypeResult Angel Baltazar M.D.LAB MICROBIOLOGY - GENERAL ORDERABLESFinal ResultPerforming OrganizationAddress City/State/ZIP CodePhone Number [facility] [address] [place] [address] [place] [address], [facility] ECLR [address] [facility] [address] [place] [address] from Last 3 Months or Most Recently Relevant to Health Maintenance Insurance * Guarantor: Orville Jackson TypeRelation to PatientDate of BirthPhone Billing AddressPersonal/CiklboLctygx47/06/1981 [address] [place] [address] Care Teams Team MemberRelationshipSpecialtyStart DateEnd Date Leigha Mace M.D. [address] [place] [address] [place] [phone] [facility]10/07/16
--- OUTSIDE RECORDS SUMMARY | 2025-04-21 20:15 | XMS_ITS | Encounter Summary ---
Author Organization [facility] Address [address] [place] [address] Care Team Providers Care Live In Housekeeper Name Role Phone Leigha Oleary M.D. Primary Care Pro vider Reason for Visit * ReasonOnset DateCommentsMed Tabevr6503/26/2025 Encounter Details DateTypeDepartmentCare Team (Latest Contact Info)Czozjilxsmn78/02/2025Refill Department of Family Medicine, [facility], in [address] [phone] Leigha Oleary M.D. [address] [place] [phone] Med Refill Social History Tobacco UseTypesPacks/DayYears UsedDateSmoking Tobacco: NeverSmokeless Tobacco: NeverAlcohol UseStandard Drinks/WeekCommentsYes6 (1 standard drink = 0.6 oz pure alcohol)[facility] UtilitiesAnswerDate RecordedIn the past 12 months has the [employer], gas, oil, or water [employer] threatened to shut off services in your [...] and Gender Information ValueDate RecordedSex Assigned at LnkvsSufyoa28/14/2022 5:47 PM CDTLegal Sex Ajtjqt2205/28/2016 1:54 PM CSTGender WtfjwuhsJgamhi69/14/2022 5:47 PM CDTSexual OrientationNot on filedocumented as of this encounter Miscellaneous Notes * Addendum Note - Leigha Oleary M.D. - 03/30/2025 12:58 PM JACKER Addended by: LEIGHA OLEARY on: 03/30/2025 12:58 PM Modules accepted: Orders ER * Telephone Encounter - Maryellen Vigil - 03/27/2025 6:28 AM CST Needs Review: Med Refill Team is unable to forward request to provider. Controlled Substance Primary Provider: Leigha Baltazar M.D. Requested Prescriptions Pending Prescriptions Disp Refills dextroamphetamine-amphetamine (AdderalL) 10 mg tablet 60 tablet 0 Sig: Take 1 tablet (10 mg total) by mouth 2 (two) times a day. ER documented in this encounter Plan of Treatment DateTypeDepartmentCare Team (Latest Contact Info)Mdfysrwdzrb41/29/2025 8:00 AM CSTOffice Visit Department of Family Medicine, [facility], in [address] [phone] Leigha Oleary M.D. 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 NPLety: [phone] [id number] [place] [address] PCP - General10/07/16documented as of this encounter
--- OUTSIDE RECORDS SUMMARY | 2025-04-21 20:15 | XMS_ITS | Encounter Summary ---
Author Organization [facility] Address [address] [place] [address] Care Team Providers Care Respite Coordinator Name Role Phone Leigha Mace M.D. Primary Care Pro vider Reason for Visit * ReasonOnset DateCommentsMed Jgzrje6003/19/2025 Encounter Details DateTypeDepartmentCare Team (Latest Contact Info)Pedujgvujet28/25/2025Refill Department of Family Medicine, [facility], in [address] [phone] Leigha Mace M.D. [address] [place] [phone] Med Refill Social History Tobacco UseTypesPacks/DayYears UsedDateSmoking Tobacco: NeverSmokeless Tobacco: NeverAlcohol UseStandard Drinks/WeekCommentsYes6 (1 standard drink = 0.6 oz pure alcohol)[facility] UtilitiesAnswerDate RecordedIn the past 12 months has the [employer], gas, oil, or water [employer] threatened to shut off services in your [...] and Gender Information ValueDate RecordedSex Assigned at EkwydBdztvp55/14/2022 5:47 PM CDTLegal Sex Ykxehd3605/28/2016 1:54 PM CSTGender QrurppnqDeltsb41/14/2022 5:47 PM CDTSexual OrientationNot on filedocumented as of this encounter Plan of Treatment DateTypeDepartmentCare Team (Latest Contact Info)Rtzsqmqjclh83/29/2025 8:00 AM CSTOffice Visit Department of Family Medicine, [facility], in [address] [phone] Leigha Mace M.D. 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 [address] [place] [phone] PCP - General10/07/16documented as of this encounter
== END 2025-04-21 20:38 | disposition home or self-care (01) ==
PROVIDERS: Emergency Provider Emergency Medicine; PCP Family Medicine
DX: O20.0 Threatened abortion (principal); Z3A.16 16 weeks gestation of pregnancy
CPT/HCPCS: 36415; 76857; 84702; 85025; 99283; 99284